=== PATIENT | male | born 1975 | race Caucasian/White ===

== ENCOUNTER 2021-03-16 18:20 | Emergency (ER) | payer OTHER ==
[2021-03-16 20:02] LABS: BENZODIAZEPINE,URINE NEGATIVE (NEGATIVE); MDMA (ECSTASY), URINE NEGATIVE (NEGATIVE); METHADONE,URINE NEGATIVE (NEGATIVE); METHAMPHETAMINES,URINE NEGATIVE (NEGATIVE); OPIATES,URINE NEGATIVE (NEGATIVE); TCA,URINE NEGATIVE (NEGATIVE)
[2021-03-16 20:03] LABS: ANION GAP 13.2 mEq/L (7-13); CHLORIDE,CL 102 mmol/L (98-107); SODIUM,NA 137 mmol/L (136-145)
[2021-03-16 20:03] LABS: AMPHETAMINES,URINE NEGATIVE (NEGATIVE); BARBITURATES,URINE NEGATIVE (NEGATIVE); OXYCODONE,URINE NEGATIVE (NEGATIVE); PHENCYCLIDINE,URINE NEGATIVE (NEGATIVE)
--- NOTE | 2021-03-16 20:06 | CT ---
PROCEDURE INFORMATION: Exam: CT Head Without Contrast Exam date and time: 03/16/2021 7:42 PM Age: 45 years old Clinical indication: Other: Headache 3 days--no trauma TECHNIQUE: Imaging protocol: Computed tomography of the head without contrast. Radiation optimization: All CT scans at this facility use at least one of these dose optimization techniques: automated exposure control; mA and/or kV adjustment per patient size (includes targeted exams where dose is matched to clinical indication); or iterative reconstruction. COMPARISON: No relevant prior studies available. FINDINGS: Brain: The trotter-white differentiation is preserved. No intracranial mass, collection, or hemorrhage is seen. Cerebral ventricles: The ventricular size and sulcal pattern is normal. Paranasal sinuses: The visualized paranasal sinuses are normal. Mastoid air cells: Mastoid air cells well aerated. Bones/joints: The temporal bones are symmetric and unremarkable. No acute fracture. Soft tissues: There is no soft tissue abnormality seen. IMPRESSION: No acute intracranial findings.
--- NOTE | 2021-03-16 20:09 | CT ---
PROCEDURE INFORMATION: Exam: CT Maxillofacial Without Contrast Exam date and time: 03/16/2021 7:42 PM Age: 45 years old Clinical indication: Other: Headache 3 days--no trauma TECHNIQUE: Imaging protocol: Computed tomography images of the face without contrast. Radiation optimization: All CT scans at this facility use at least one of these dose optimization techniques: automated exposure control; mA and/or kV adjustment per patient size (includes targeted exams where dose is matched to clinical indication); or iterative reconstruction. COMPARISON: No relevant prior studies available. FINDINGS: Orbital cavity: The globes are symmetric. The extraocular muscles are intact. No intraconal or extraconal abnormality is seen. Bones/joints: There is no orbital margin fracture identified. The zygomatic arches and maxilla show no sign of fracture. No nasal bone or nasal septum or nasal spine fracture seen. The nasal septum is midline. Paranasal sinuses: There are no fluid levels in the paranasal sinuses. No sinus margin fracture seen. There is nonspecific mucoperiosteal thickening in the right maxillary sinus. The visualized paranasal sinuses are otherwise clear. Soft tissues: There is no soft tissue abnormality seen. Nasal cavity: Nasal passages symmetric. IMPRESSION: Minor mucoperiosteal thickening right maxillary sinus, no fluid level seen.
[2021-03-16] MEDS ORDERED: Butorphanol 2 MG/ML SDV IM ONE (20:11)
--- NOTE | 2021-03-16 20:38 | EDM.PDOC ---
ED HPI GENERAL MEDICAL PROBLEM - General Chief Complaint: Headache Stated Complaint: MIGRAINE, 3 TO 4 DAYS Time Seen by Provider: 03/16/21 19:05 Source of Information: Reports: Patient, Family, RN History Limitations: Reports: No Limitations - History of Present Illness INITIAL COMMENTS - FREE TEXT/NARRATIVE: 45-year-old male who presents to the ER with his significant other for 3-day history of headaches. This came on suddenly and have been intermittent for the past 3 days. Patient reports he has tried Zyrtec thinking it was sinus headaches with no relief. He also reports a history of hypertension which is managed with hydrochlorothiazide as needed but he has not taken it for over a month. He states headaches are more focal in the front of his head. He admits photophobia but denies nausea vomiting at this time. He denies any recent head injuries. He has tried ibuprofen and Tylenol with little relief. Any fevers, shortness of breath, chest pain, palpitations at this time. He states that when the headache started, he noticed red spot on that has gradually gotten worse. Applied bacitracin on it with little relief. Treatments W[employer] RESOURCE CONSULTANT: Reports: Acetaminophen, Aspirin, Cold Therapy, NSAIDS, Other Medication(s) Frontal Headache Pain Score (Numeric/FACES): 8 - Related Data Allergies Allergy/AdvReac Type Severity Reaction Status Date / Time No Known Allergies Allergy Verified 03/17/21 18:21 Home Meds: Home Meds Gabapentin [Neurontin] 100 mg PO TID #60 cap 03/17/21 [Rx] hydroCHLOROthiazide [Hydrochlorothiazide] 12.5 mg PO DAILY PRN 03/17/21 [History] valACYclovir [Valtrex] 1,000 mg PO BID #14 tablet 03/17/21 [Rx] ED ROS GENERAL - Review of Systems Review Of Systems: Comprehensive ROS is negative, except as noted in HPI. - Physical Exam Exam: See Below Exam Limited By: No Limitations General Appearance: Alert, Moderate Distress Eye Exam: Bilateral Eye: EOMI, PERRL Ears: Normal External Exam, Normal Canal, Hearing Grossly Normal, Normal TMs Nose: Normal Inspection, Normal Mucosa, No Blood Throat/Mouth: Normal Oropharynx, Normal Voice, No Airway Compromise Head Exam: Atraumatic, Normocephalic Neck: Normal Inspection, Supple, Non-Tender, Full Range of Motion Respiratory/Chest: No Respiratory Distress, Lungs Clear, Normal Breath Sounds Cardiovascular: Normal Peripheral Pulses, Regular Rate, Rhythm GI/Abdominal: Normal Bowel Sounds, Soft, Non-Tender (Male) Exam: Deferred Rectal (Males) Exam: Deferred Neuro Exam (Abbreviated): Alert, Oriented, Normal Gait Back Exam: Normal Inspection Extremities: Pedal Edema (1 + pitting noted on BLE.) Psychiatric: Normal Affect, Normal Mood Skin Exam: Warm, Intact Course - Vital Signs Last Recorded V/S: Last Vital Signs Temp 98.0 F 03/16/21 18:45 Pulse 72 03/16/21 18:45 Resp 20 03/16/21 18:45 BP 154/92 H 03/16/21 18:45 Pulse Ox 97 03/16/21 18:45 - Orders/Labs/Meds Labs: Laboratory Tests 03/16/21 03/16/21 03/16/21 Range/Units 19:01 19:01 19:30 WBC 8.8 (5.0-10.0) 10^3/uL RBC 5.25 (4.6-6.2) 10^6/uL Hgb 15.6 (14.0-18.0) g/dL Hct 45.8 (40.0-54.0) % MCV 87.2 (80-100) fL MCH 29.7 (27.0-34.0) pg MCHC 34.1 (33.0-35.0) g/dL Plt Count 168 (150-450) 10^3/uL Neut % (Auto) 76.9 H (42.2-75.2) % Lymph % (Auto) 14.6 L (20.5-50.1) % [place] % (Auto) 7.5 (2-8) % Eos % (Auto) 0.8 L (1.0-3.0) % Baso % (Auto) 0.2 (0.0-1.0) % Sodium (136-145) mmol/L Potassium (3.5-5.1) mmol/L Chloride (98-107) mmol/L Carbon Dioxide (21-32) mmol/L Anion Gap (7-13) mEq/L BUN (7-18) mg/dL Creatinine (0.70-1.30) mg/dL Est Cr Clr Drug Dosing mL/min Estimated GFR (MDRD) BUN/Creatinine Ratio (No establ ref range) Glucose (70-99) mg/dL Calcium (8.5-10.1) mg/dL Total Bilirubin (0.2-1.0) mg/dL AST (15-37) U/L ALT (16-63) U/L Alkaline Phosphatase (46-116) U/L Total Protein (6.4-8.2) g/dL Albumin (3.4-5.0) g/dL Globulin Albumin/Globulin Ratio Urine Color Yellow (YELLOW) Urine Appearance Clear (CLEAR) Urine pH 6.5 (5.0-9.0) Ur Specific [place] 1.015 (1.005-1.030) Urine Protein 30 H (NEGATIVE) Urine Glucose (UA) Negative (NEGATIVE) Urine Ketones Negative (NEGATIVE) Urine Occult Blood Trace-intact H (NEGATIVE) Urine Nitrite Negative (NEGATIVE) Urine Bilirubin Negative (NEGATIVE) Urine Urobilinogen 0.2 (0.2-1.0) mg/dL Ur Leukocyte Esterase Negative (NEGATIVE) Urine Opiates Screen Negative (NEGATIVE) Ur Oxycodone Screen Negative (NEGATIVE) Urine Methadone Screen Negative (NEGATIVE) Ur Barbiturates Screen Negative (NEGATIVE) U Tricyclic Antidepress Negative (NEGATIVE) Ur Phencyclidine Scrn Negative (NEGATIVE) Ur Amphetamine Screen Negative (NEGATIVE) U Methamphetamines Scrn Negative (NEGATIVE) Urine MDMA Screen Negative (NEGATIVE) U Benzodiazepines Scrn Negative (NEGATIVE) Urine Cocaine Screen Negative (NEGATIVE) U Marijuana (THC) Screen Negative (NEGATIVE) 03/16/21 Range/Units 19:30 WBC (5.0-10.0) 10^3/uL RBC (4.6-6.2) 10^6/uL Hgb (14.0-18.0) g/dL Hct (40.0-54.0) % MCV (80-100) fL MCH (27.0-34.0) pg MCHC (33.0-35.0) g/dL Plt Count (150-450) 10^3/uL Neut % (Auto) (42.2-75.2) % Lymph % (Auto) (20.5-50.1) % [place] % (Auto) (2-8) % Eos % (Auto) (1.0-3.0) % Baso % (Auto) (0.0-1.0) % Sodium 137 (136-145) mmol/L Potassium 4.2 (3.5-5.1) mmol/L Chloride 102 (98-107) mmol/L Carbon Dioxide 26 (21-32) mmol/L Anion Gap 13.2 H (7-13) mEq/L BUN 13 (7-18) mg/dL Creatinine 1.09 (0.70-1.30) mg/dL Est Cr Clr Drug Dosing 101.21 mL/min Estimated GFR (MDRD) > 60 BUN/Creatinine Ratio 11.9 (No establ ref range) Glucose 112 H (70-99) mg/dL Calcium 8.6 (8.5-10.1) mg/dL Total Bilirubin 0.8 (0.2-1.0) mg/dL AST 18 (15-37) U/L ALT 32 (16-63) U/L Alkaline Phosphatase 36 L (46-116) U/L Total Protein 6.9 (6.4-8.2) g/dL Albumin 3.6 (3.4-5.0) g/dL Globulin 3.3 Albumin/Globulin Ratio 1.1 Urine Color (YELLOW) Urine Appearance (CLEAR) Urine pH (5.0-9.0) Ur Specific [place] (1.005-1.030) Urine Protein (NEGATIVE) Urine Glucose (UA) (NEGATIVE) Urine Ketones (NEGATIVE) Urine Occult Blood (NEGATIVE) Urine Nitrite (NEGATIVE) Urine Bilirubin (NEGATIVE) Urine Urobilinogen (0.2-1.0) mg/dL Ur Leukocyte Esterase (NEGATIVE) Urine Opiates Screen (NEGATIVE) Ur Oxycodone Screen (NEGATIVE) Urine Methadone Screen (NEGATIVE) Ur Barbiturates Screen (NEGATIVE) U Tricyclic Antidepress (NEGATIVE) Ur Phencyclidine Scrn (NEGATIVE) Ur Amphetamine Screen (NEGATIVE) U Methamphetamines Scrn (NEGATIVE) Urine MDMA Screen (NEGATIVE) U Benzodiazepines Scrn (NEGATIVE) Urine Cocaine Screen (NEGATIVE) U Marijuana (THC) Screen (NEGATIVE) Meds: Medications Discontinued Medications Generic Name Dose Route Start Last Admin Trade Name Freq PRN Reason Stop Dose Admin Butorphanol Tartrate 2 mg 03/16/21 20:11 03/16/21 20:22 Butorphanol 2 Mg/Ml Sdv IM 03/16/21 20:12 2 mg ONETIME ONE Administration Hydrochlorothiazide 12.5 mg 03/16/21 20:47 03/16/21 20:59 Hydrochlorothiazide 25 Mg Tab PO 03/16/21 20:48 12.5 mg ONETIME ONE Administration - Re-Assessments/Exams Free Text/Narrative Re-Assessment/Exam: Reviewed exam findings, lab and CT scan results with patient. Patient was offered hydrochlorothiazide in the ER and a prescription sent home with patient. Encouraged him to follow-up with his PCP in the clinic. Encouraged him to push fluids and rest. Departure - Departure Time of Disposition: 21:50 Disposition: Home, Self-Care 01 Condition: Fair Clinical Impression: Tension-type headache, Essential hypertension, Lower extremity edema - Discharge Information Instructions: Hypertension, Adult, [id number], General Headache Without Cause, [id number] Referrals: Osmany Washington MD [Primary Care Provider] - Forms: ED Department Discharge Additional Instructions: Encouraged patient to rest. Take Ibuprofen 600 mg with meals every 8 hours as needed or Tylenol 1000 mg every 6 hours as needed. Avoid alcohol. Refill HCTZ and take daily. Follow up with PCP on Thursday March 18, 2021 or return to the ER if symptoms worsens. Sepsis Event Note (ED) - Evaluation Sepsis Screening Result: No Definite Risk
[2021-03-16] MEDS ORDERED: Hydrochlorothiazide 25 MG Tab PO ONE (20:47)
== END 2021-03-16 21:25 | disposition home or self-care (01) ==
LOC: DL.ED 18:20
DX: G44.209 Tension-type headache, unspecified, not intractable (principal); I10 Essential (primary) hypertension; R60.0 Localized edema; Z79.899 Other long term (current) drug therapy
CPT/HCPCS: 36415; 70450; 70486; 80053; 80305-QW; 81003; 85025; 96372; 99283; 99284-25; A9270-GY; J0595